=== PATIENT | male | born 1995 ===

== ENCOUNTER 2018-08-25 21:19 | Emergency (ER) | payer SELFPAY ==
[2018-08-25 21:27] VITALS: BP 135/89; PULSE 105; TEMP 99.1; O2SAT 97
--- NOTE | 2018-08-25 21:45 | C.PDOC ---
History Of Present Illness 23 y/o male presents to the ED for evaluation of right ankle injury sustained today. Patient states he twisted the right ankle accidentally. Now complains of pain, bruising, and swelling to the side and top of right foot. Pain worsens with walking. No change in sensation. 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 PS PIPE LANDED ON FOOT. Time Seen by Provider: 08/25/18 21:31 Chief Complaint (Nursing): Lower Extremity Problem/Injury History Per: Patient History/Exam Limitations: no limitations Onset/Duration Of Symptoms: Hrs Current Symptoms Are (Timing): Still Present Past Medical History Reviewed: Historical Data, Nursing Documentation, Vital Signs Vital Signs: Last Vital Signs Temp 99.1 F 08/25/18 21:23 Pulse 105 H 08/25/18 21:23 Resp 22 08/25/18 21:23 BP 135/89 08/25/18 21:23 Pulse Ox 97 08/25/18 21:23 - Medical History PMH: No Chronic Diseases Surgical History: No Surg Hx Family History: States: No Known Family Hx - Social History Hx Tobacco Use: Yes Hx Alcohol Use: Yes Hx Substance Use: No - Immunization History Hx Tetanus Toxoid Vaccination: No Hx Influenza Vaccination: No Hx Pneumococcal Vaccination: No Review Of Systems Except As Marked, All Systems Reviewed And Found Negative. Musculoskeletal: Positive for: Foot Pain (right ankle and foot) Skin: Positive for: Bruising (to ankle). Negative for: Lesions Neurological: Negative for: Weakness, Numbness, Incoordination Physical Exam - Physical Exam Appears: Well, Non-toxic, No Acute Distress Skin: Warm, Dry, Ecchymosis (to right ankle) Eye(s): bilateral: Normal Inspection Neck: Normal ROM Chest: Symmetrical Respiratory: No Accessory Muscle Use, Other (NARD) Extremity: Normal ROM, Tenderness (to the lateral malleolus), No Deformity, Swelling (mild swelling to the right ankle) Pulses: Left Dorsalis Pedis: Normal, Right Dorsalis Pedis: Normal Neurological/Psych: Oriented x3, Normal Motor, Normal Sensation, Other (No focal deficits) ED Course And Treatment O2 Sat by Pulse Oximetry: 97 (RA) Pulse Ox Interpretation: Normal - Other Rad right ankle x-ray X-Ray: Interpreted by Me, Viewed By Me Interpretation: No acute fracture or dislocation right foot x-ray X-Ray: Interpreted by Me, Viewed By Me Interpretation: + Kevin fracture Progress - Re-Evaluation Re-evaluation Note: 08/25/18 22:07 PODIATRY RESIDENT PAGED 08/25/18 22:13 D/W POD RESIDENT WILL EVAL IN ER - Data Reviewed Data Reviewed: Diagnostic imaging, Old records Medical Decision Making Medical Decision Making: Impression: Ankle injury Plan: --Right ankle x-ray --Right foot x-ray X-ray shows (+) Kevin fracture, discussed with patient. Disposition Counseled Patient/Family Regarding: Studies Performed, Diagnosis, Need For Followup, Rx Given - Disposition Referrals: Bhavani Shook DPM [Staff Provider] - [facility] [Outside] [facility] [Outside] Disposition: HOME/ ROUTINE Disposition Time: 22:58 Condition: IMPROVED Prescriptions: Ibuprofen [Motrin] 600 mg PO Q6 #30 tab Instructions: Foot Avulsion Fracture (DC) Forms: [employer] (Slovenian), Work Excuse Print Language: FIJIAN - Clinical Impression Clinical Impression: Kevin fracture - Scribe Statement The provider has reviewed the documentation as recorded by the Hugo Finn Provider Attestation: All medical record entries made by the Delvinibe were at my direction and personally dictated by me. I have reviewed the chart and agree that the record accurately reflects my personal performance of the history, physical exam, medical decision making, and the department course for this patient. I have also personally directed, reviewed, and agree with the discharge instructions and disposition.
[2018-08-25] MEDS ORDERED: Oxycodone/Acetaminophen 5/325 mg Tab PO STA (22:26)
[2018-08-25] MEDS ORDERED: Oxycodone/Acetaminophen 5/325 mg Tab ONE (22:30)
[2018-08-25 23:26] VITALS: RESP 20
--- NOTE | 2018-08-25 23:39 | CP.PCM.CON ---
History of Present Illness - History of Present Illness History of Present Illness: Podiatry Consult Note- Dr. Shook 23M with no PMH seen and evaluated in the ED for right lower extremity pain. Brother is at bedside during the encounter. Patient reports at 1pm today he was unloading a truck when he twisted in ankle. He reports his ankle rolled inwards. Denies hearing a pop or crack. Reports has been ambulating on the right lower extremity after the injury with increase pain. Reports the pain felt worse and decided to go to the ED for an evaluation. Patient denies numbness or tingling. Denies nausea, fever, shortness of breath, chest pains or chills. PMH: denies PSH: denies SH: reports smoking (for 1 year), reports socially drinks alcohol, denies illicit drug use ALL: NKDA MEDS: denies FH: denies Past Patient History - Past Social History Smoking Status: Light Smoker < 10 Cigarettes Daily - PSYCHIATRIC Hx Substance Use: No - SURGICAL HISTORY Hx Surgeries: No - ANESTHESIA Hx Anesthesia: No Meds Home Medications: Home Medication List Medication Instructions Recorded Confirmed Type Ibuprofen [Motrin] 600 mg PO Q6 #30 tab 08/25/18 Rx Allergies/Adverse Reactions: Allergies Allergy/AdvReac Type Severity Reaction Status Date / Time No Known Allergies Allergy Verified 08/25/18 21:27 Physical Exam - Constitutional Appears: Well, Non-toxic, No Acute Distress - Extremities Exam Extremities exam: Negative for: calf tenderness Additional comments: Focused right lower extremity examination VASC: DP and PT 2/4, CFT < 3 seconds, temperature gradient warm to warm, mild nonpitting edema noted to lateral aspect of foot, no varcosities ORTHO: moderate pain with palpation to the 5th metatarsal base and tuberosity, pain with palpation to the ATFL, pain with eversion, able to wiggle toes, ankle ROM WNL NEURO: gross and protective sensation intact DERM: mild ecchymosis noted to the lateral aspect of right foot, no fracture blisters, no opening, no erythema, no clinical signs of infection - Neurological Exam Neurological exam: Alert Results - Vital Signs Recent Vital Signs: Last Vital Signs Temp 99.1 F 08/25/18 21:23 Pulse 105 H 08/25/18 21:23 Resp 20 08/25/18 23:25 BP 135/89 08/25/18 21:23 Pulse Ox 97 08/25/18 23:00 Assessment & Plan - Assessment and Plan (Free Text) Assessment: 32M with right 5th metatarsal base fracture Plan: Patient seen and evaluated Discussed plan in detail with attending Dr. Shook X-rays reviewed- reviewed with patient 5th metatarsal base fracture Posterior splint applied NWB in crutches Instructed to NWB with crutches Instructed on RICE protocol OTC analgesic for pain F/U in clinic in 1 week at [facility] Will call for an appointment Thank you for allowing us to participate in patient's care - Date & Time Date: 08/25/18 Time: 22:45
--- NOTE | 2018-08-26 09:35 | RAD ---
Date of service: 08/25/2018 PROCEDURE: Right Foot Radiographs. HISTORY: trauma COMPARISON: None. FINDINGS: BONES: A nondisplaced 5th metatarsal base fracture with metatarsal-cuboid intra-articular extension is suggested. (A separate flake fracture fragment is noted and/or suggested on the same-day right ankle x-ray) JOINTS: As above SOFT TISSUES: Normal. OTHER FINDINGS: None. IMPRESSION: Nondisplaced, intra-articular 5th metatarsal base fracture.
--- NOTE | 2018-08-26 10:39 | RAD ---
Date of service: 08/25/2018 PROCEDURE: Right Ankle Radiographs. HISTORY: TRAUMA COMPARISON: A same-day right foot x-ray study is noted FINDINGS: BONES: A 7 x 2 mm 5th metatarsal base fracture is noted. A discrete fracture fragment 7 -8 x 2-3 mm in size is suggested this ankle x-ray. Intra-articular extension-metatarsal cuboid joint suspect. No displaced fragments greater than 1 mm appreciated. JOINTS: . No osteoarthritis. Ankle mortise maintained. Talar dome intact SOFT TISSUES: Normal. OTHER FINDINGS: None. IMPRESSION: A 7 x 2 mm 5th metatarsal base fracture is noted. A discrete fracture fragment 7 -8 x 2-3 mm in size is suggested this ankle x-ray. Intra-articular extension-metatarsal cuboid joint suspect. No displaced fragments greater than 1 mm appreciated. Findings were conveyed back via physician note tracking Comments: Study marked for PA review. The fracture was referenced as well on the right foot x-ray
== END 2018-08-25 23:25 | disposition home or self-care (01) ==
LOC: C.ER 21:19
DX: S92.351A Displaced fracture of fifth metatarsal bone, right foot, initial encounter for closed fracture (principal); X50.1XXA Overexertion from prolonged static or awkward postures, initial encounter; Y92.89 Other specified places as the place of occurrence of the external cause; Y99.0 Civilian activity done for income or pay